=== PATIENT | male | born 1980 | race African-American/Black ===

== ENCOUNTER 2023-04-15 14:41 | Inpatient (IN) | payer SELFPAY ==
[~2023-04-15] VITALS: Ht 182.9 cm; Wt 90.7 kg
[2023-04-15 14:54] VITALS: BP 184/119; PULSE 83; RESP 18; TEMP 98; O2SAT 99
[2023-04-15] MEDS ORDERED: ONDANSETRON 4 MG/2 ML VIAL IVP ONE (15:40)
[2023-04-15] MEDS ORDERED: FAMOTIDINE 20 MG/2 ML VIAL IVP ONE (15:40)
[2023-04-15] MEDS ORDERED: NACL 0.9% 1,000 ML IV SCH (15:40)
[2023-04-15] MEDS ORDERED: LABETALOL 20 MG/4 ML VIAL IVP ONE (16:10)
[2023-04-15] MEDS ORDERED: MECLIZINE 25 MG TAB PO ONE (16:10)
[2023-04-15 16:48] LABS: BASOPHILS # (AUTO) 0.1 K/uL (0.00-0.22); BASOPHILS % (AUTO) 0.5 % (0.0-2.0); EOSINOPHILS # (AUTO) 0.1 K/uL (0-0.4); EOSINOPHILS % (AUTO) 1.2 % (0.0-4.0); HEMATOCRIT 49.9 % (36-52); HEMOGLOBIN 16.8 g/dL (12.0-18.0); LYMPHOCYTES # (AUTO) 1.7 K/uL (2.0-11.5); LYMPHOCYTES % (AUTO) 14.3 % (20.5-51.1); MEAN CORPUSCULAR HEMOGLOBIN 28 pg (27-31); MEAN CORPUSCULAR HGB CONC 34 g/dL (33-37); MEAN CORPUSCULAR VOLUME 84.1 fL (80-94); MONOCYTES # (AUTO) 0.5 K/uL (0.8-1.0); NEUTROPHILS # (AUTO) 9.6 K/uL (1.8-7.7); PLATELET COUNT (AUTO) 293 K/uL (140-450); RED BLOOD CELL COUNT(AUTO) 5.94 MIL/uL (4.20-6.10)
[2023-04-15 17:09] LABS: ALANINE AMINOTRANSFERASE 40 U/L (12-78); ALBUMIN 3.9 g/dL (3.4-5.0); ALKALINE PHOSPHATASE 96 U/L (50-136); ANION GAP 11.8 (8-16); ASPARTATE AMINOTRANSFERASE 28 U/L (15-37); CALCIUM 8.9 mg/dL (8.5-10.1); CARBON DIOXIDE 29.9 mmol/L (21-32); CHLORIDE 102 mmol/L (98-107); GFR ARICAN-AMERICAN 106 mL/min (>90); GFR NON ARICAN-AMERICAN 88 mL/min (>90); GLUCOSE 119 mg/dL (74-106); LIPASE 51 U/L (73-393); POTASSIUM 3.7 mmol/L (3.5-5.1); SODIUM SERUM 140 mmol/L (136-145); TOTAL BILIRUBIN 0.3 mg/dL (0.0-1.0); TOTAL PROTEIN, SERUM 8.4 g/dL (6.4-8.2); UREA NITROGEN, BLOOD 18 mg/dL (7-18)
[2023-04-15 17:11] LABS: INR 0.93 (0.8-1.2); PARTIAL THROMBOPLASTIN TIME 28.7 secs (22-35.6); PROTHROMBIN TIME 9.8 secs (10.8-13.4)
[2023-04-15 17:15] LABS: LACTIC ACID 1.8 mmol/L (0.4-2.0)
[2023-04-15] MEDS ORDERED: ASPIRIN 325 MG TAB PO ONE (17:25)
[2023-04-15] MEDS ORDERED: LOVENOX 1MG/KG Q24H SUBQ SCH (19:40)
[2023-04-15 20:26] LABS: APPEARANCE,URINE CLEAR (CLEAR); BILIRUBIN,URINE NEGATIVE (NEGATIVE); BLOOD, URINE NEGATIVE (NEGATIVE); LEUKOCYTE ESTERASE ,URINE NEGATIVE (NEGATIVE); NITRITE, URINE NEGATIVE (NEGATIVE); PROTEIN,URINE NEGATIVE (NEGATIVE); UGLUCOSE NEGATIVE (NEGATIVE); UROBILINOGEN,URINE 0.2 EU/dL (0.2 - 1)
[2023-04-15 20:38] LABS: COLOR,URINE STRAW (YELLOW)
[2023-04-15] MEDS ORDERED: NACL 0.9% 1,000 ML IV ONE (20:45)
[2023-04-15] MEDS ORDERED: ENOXAPARIN 100 MG/ML SYR SUBQ ONE (21:53)
[2023-04-15] MEDS ORDERED: ONDANSETRON 4 MG/2 ML VIAL IM/IVP PRN (22:00)
[2023-04-15] MEDS ORDERED: hydrALAZINE 20 MG/ML VIAL IVP PRN (22:00)
[2023-04-15] MEDS ORDERED: DOCUSATE SODIUM 100 MG GELCAP PO PRN (22:00)
[2023-04-15] MEDS ORDERED: HYDROcodone/APAP 7.5/325 MG 1 TAB PO PRN (22:00)
[2023-04-15] MEDS ORDERED: POTASSIUM CHLORIDE 10 MEQ TABER PO PRN (22:00)
[2023-04-15] MEDS ORDERED: ZOLPIDEM 5 MG TAB PO PRN (22:00)
[2023-04-15] MEDS ORDERED: ACETAMINOPHEN 325 MG TAB PO PRN (22:00)
[2023-04-15] MEDS ORDERED: guaiFENesin DM 200/20 MG-10 ML 10 ML UDC PO PRN (22:00)
[2023-04-15] MEDS ORDERED: ENOXAPARIN 100 MG/ML SYR SUBQ SCH (22:05)
[2023-04-15] MEDS: NACL 0.9% 1,000 ML IV SCH (22:39)
[2023-04-15 23:15] VITALS: BP 155/98; PULSE 77; PULSE 94; RESP 20; TEMP 98.6; O2SAT 96; O2SAT 97
[2023-04-16] MEDS ORDERED: PANTOPRAZOLE 40 MG INJ VIAL IVP ONE (01:05)
[2023-04-16] MEDS ORDERED: PANTOPRAZOLE 40 MG INJ VIAL ONE (03:29)
[2023-04-16 04:00] VITALS: BP 139/84; PULSE 71; PULSE 74; PULSE 94; RESP 20; TEMP 97.7; O2SAT 97
[2023-04-16 06:48] LABS: BASOPHILS % (AUTO) 0.2 % (0.0-2.0); EOSINOPHILS # (AUTO) 0.2 K/uL (0-0.4); EOSINOPHILS % (AUTO) 1.8 % (0.0-4.0); HEMATOCRIT 43.1 % (36-52); HEMOGLOBIN 14.4 g/dL (12.0-18.0); LYMPHOCYTES # (AUTO) 3.1 K/uL (2.0-11.5); LYMPHOCYTES % (AUTO) 25.9 % (20.5-51.1); MEAN CORPUSCULAR HEMOGLOBIN 28 pg (27-31); MEAN CORPUSCULAR HGB CONC 34 g/dL (33-37); MEAN CORPUSCULAR VOLUME 84.5 fL (80-94); MONOCYTES # (AUTO) 0.7 K/uL (0.8-1.0); MONOCYTES % (AUTO) 5.5 % (1.7-9.3); NEUTROPHILS % (AUTO) 66.6 % (42.2-75.2); PLATELET COUNT (AUTO) 271 K/uL (140-450); RED BLOOD CELL COUNT(AUTO) 5.11 MIL/uL (4.20-6.10); RED CELL DISTRIBUTION WIDTH 13.9 % (11.6-13.7)
[2023-04-16 06:57] LABS: ALBUMIN 3.1 g/dL (3.4-5.0); ANION GAP 12.5 (8-16); CARBON DIOXIDE 25.9 mmol/L (21-32); CREATININE 0.9 mg/dL (0.6-1.3); POTASSIUM 3.4 mmol/L (3.5-5.1); TOTAL BILIRUBIN 0.3 mg/dL (0.0-1.0)
[2023-04-16 08:00] VITALS: BP 145/87; PULSE 60; PULSE 67; RESP 18; TEMP 97; O2SAT 96
[2023-04-16] MEDS ORDERED: PANTOPRAZOLE 40 MG TABEC PO SCH (09:00)
[2023-04-16 11:47] LABS: CHOL/HDL RATIO 2.8 (1-4.5)
[2023-04-16 12:00] VITALS: BP 142/94; PULSE 75; PULSE 77; RESP 18; TEMP 97.5; O2SAT 98
[2023-04-16] MEDS: NACL 0.9% 1,000 ML IV SCH (14:40)
[2023-04-17] MEDS ORDERED: carvediloL 3.125 MG TAB PO SCH (09:00)
[2023-04-17] MEDS ORDERED: ASPIRIN 81 MG TAB.CHEW PO SCH (09:00)
[2023-04-17] MEDS ORDERED: ATORVASTATIN 20 MG TAB PO SCH (09:00)
[2023-04-17] MEDS ORDERED: lisinopriL 10 MG TAB PO SCH (09:00)
== END 2023-04-16 16:25 | disposition left against medical advice (07) | DRG 282 ==
LOC: MED 14:41 → MTU 21:59
PROVIDERS: ADMIT Student in an Organized Health Care Education/Training Program; ATTEND Student in an Organized Health Care Education/Training Program
DX: I16.0 Hypertensive urgency (principal); I21.A1 Myocardial infarction type 2; F17.200 Nicotine dependence, unspecified, uncomplicated; Z90.49 Acquired absence of other specified parts of digestive tract; Z88.0 Allergy status to penicillin
CPT/HCPCS: 36415; 71045; 80053; 81003; 83036; 83605; 83690; 84484; 85025; 85610; 85730; 87040; 87081; 87086; 96361; 96374; 96375; 99285; C9113; J1650; J2405; J3490; J8597